=== PATIENT | male | born 1970 | race Hispanic/Latino ===

== ENCOUNTER 2019-05-22 08:00 | Outpatient (CLI) | payer BC ==
--- NOTE | 2019-05-22 10:31 | MRI ---
MRI LEFT KNEE WITHOUT CONTRAST: HISTORY: Left knee pain. FINDINGS: The anterior as well as posterior cruciate ligaments are intact. The lateral meniscus has a normal shape and appearance. There is a posterior horn medial meniscus tear which appears to have more of a radial orientation. Th ere are also some mild edema changes along the meniscocapsular junction of the posterior horn. There are edema changes superficial to the MCL, which is intact. The meniscofemoral and meniscotibial ligaments are intact. The lateral collateral ligament is intact. The patellar articular cartilage shows some grade 4 chondromalacia change near the apex of the patell a. Medial and lateral patellar retinaculum and quadriceps and patellar tendons are normal. There are some articular bodies noted within the posterior joint space. These are directly posterior to the amada t of the posterior horn of the medial meniscus. IMPRESSION: 1. Radially oriented tear involving the posterior horn of the medial meniscus. There are also some mo derate chondromalacia changes of the posterior articular surface of the medial femoral condyle. 2. Edema changes which are superficial to the medial collateral ligament. This could indicate some el ement of medial collateral ligament strain. There is some soft tissue edema change seen also posterio r to the medial collateral ligament. 3. 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 POS: [facility]PC
== END 2019-05-22 08:01 | disposition home or self-care (01) ==
LOC: SCSMRI 08:00
PROVIDERS: ATTEND Family Medicine
DX: M23.92 Unspecified internal derangement of left knee (principal); S83.242A Other tear of medial meniscus, current injury, left knee, initial encounter; M17.12 Unilateral primary osteoarthritis, left knee

== ENCOUNTER 2019-07-08 08:28 | Outpatient (CLI) | payer BC ==
[2019-07-08 11:37] LABS: #Basophils 0.1 thou/uL (0.0-0.2); #Eosinphils 0.3 thou/uL (0.0-0.7); #Lymphocytes 1.4 thou/uL (1.20-3.40); #Monocytes 0.7 thou/uL (0.11-0.59); #Neutrophils 4.6 thou/uL (1.40-6.50); %Basophils 0.9 % (0.0-1.0); %Eosinophils 4.6 % (0.0-10.0); %Monocytes 9.9 % (0.0-10.0); %Neutrophils 64.6 % (42.0-75.0); Hemoglobin 15.1 g/dL (14.0-18.0); Mean Corpuscular HGB CONC 32.7 g/dL (32.0-36.0); Mean Corpuscular Hemoglobin 30.3 pg (27.0-31.0); Mean Corpuscular Volume 92.7 fL (78.0-98.0); Mean Platelet Volume 10.8 fL (7.4-10.4); Platelet Count 193 thou/uL (130-400); RBC Distribution Width 12.4 % (11.5-14.5); White Blood Cell (WBC) Count 7.2 thou/uL (4.8-10.8)
[2019-07-08 11:57] LABS: Anion Gap 14 mmol/L (10-20); BUN (Urea Nitrogen) 15 mg/dL (8.9-20.6); Calc. Creatinine Clearance 0 mL/min (70-130); Calcium 9.3 mg/dL (7.8-10.44); Carbon Dioxide 24 mmol/L (22-29); Chloride 106 mmol/L (98-107); Estimated GFR-MDRD 83; Glucose 90 mg/dL (70-105); Potassium 3.7 mmol/L (3.5-5.1); Sodium 140 mmol/L (136-145)
== END 2019-07-08 08:29 | disposition home or self-care (01) ==
LOC: LABBT 08:28
PROVIDERS: ATTEND Orthopaedic Surgery
DX: Z01.818 Encounter for other preprocedural examination (principal); S83.207A Unspecified tear of unspecified meniscus, current injury, left knee, initial encounter
CPT/HCPCS: 80048; 85025; 93005; 93010

== ENCOUNTER 2019-07-10 05:59 | Day surgery (SDC) | payer BC ==
[2019-07-08 08:51] VITALS: BMI 27.6
[2019-07-10] MEDS ORDERED: Clindamycin/D5W 600 mg/50 ml Premix Bag ONE (06:06)
[2019-07-10] MEDS ORDERED: PROPOFOL 20 ML ONE (06:56)
[2019-07-10] MEDS ORDERED: Midazolam HCl 2 mg/2 ml Vial ONE (07:19)
[2019-07-10] MEDS ORDERED: Fentanyl 100 MCG/2 ML VIAL ONE (07:20)
--- NOTE | 2019-07-10 10:39 | OP ---
DATE OF PROCEDURE: 07/10/2019 PREOPERATIVE DIAGNOSES: 1. Right knee pain. 2. Left knee medial meniscus tear. POSTOPERATIVE DIAGNOSES: 1. Right knee pain. 2. Left knee unstable chondral flaps over a grade 4 lesion on the medial femoral condyle, which was nearly 3 cm from anterior to posterior and at its widest was 8 mm mediolateral. 3. Grade 4 lesion of the patella with loose unstable chondral flaps. PROCEDURES PERFORMED: 1. Left knee chondroplasty of the medial femoral condyle and patella. 2. Right knee corticosteroid injection. 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 ESTIMATED BLOOD LOSS: Minimal. COMPLICATIONS: None. ANESTHESIA: The patient had a general anesthetic as well as a local knee block. DISPOSITION: He went to recovery room in stable condition. INDICATIONS: This is an active 49-year-old male, who comes in complaining of pain, catching, and swelling of the knee and had an MRI, which showed a large meniscal tear. DESCRIPTION OF PROCEDURE: After all appropriate consent forms were explained and signed, he was taken back to the operative room and at this time was given general anesthetic. Once the level of anesthesia was appropriate, 80 mg of Depo-Medrol with plain lidocaine was injected into the right knee without complication. A Band-Aid was applied. At this time, a tourniquet was placed on the left thigh and leg was then placed in arthroscopic leg daugherty. The limb was then prepped and draped in standard surgical fashion. The limb was then exsanguinated and tourniquet was taken up to 300 mmHg. Inferolateral portal was established. Scope was placed into the knee joint. A needle localization technique was then used to make a medial working portal. Diagnostic arthroscopy commenced in the notch. The ACL and PCL were probed, found to be intact, with small osteophyte in the notch itself. There were no loose bodies noted in the notch. Upon visualization of the medial femoral condyle, it was apparent that there was an area of grade 4 that had already grown little bit of fiber cartilage over top of it. There was some significant unstable chondral flaps, which were able to be pulled in and out with a probe. These were taken down to a stable wall with shaver and biter. Once this was done, this defect was measured at its widest point, it was 8 mm with the majority of it was around 5 mm and it was nearly 3 cm from ADP. At this time, we then turned our attention to the remaining portion of the medial compartment. The medial tibial plateau did have some grade 2 areas, but there was no visible bone. The meniscus was probed on the superior and inferior surface and found to be completely intact. I did go behind the medial femoral condyle, looking for any loose pieces or any evidence of meniscal capsular separation and there was none. At this time, we turned our attention to the lateral compartment. The lateral compartment was completely intact. I went to the posterolateral compartment looking for loose bodies and did not see any. At this time, the gutters were swept through. They were clean. The patellofemoral joint was then evaluated. The trochlea was in good condition. The patella, however, had some significant unstable chondral flaps with areas of grade 3 and 4 chondromalacia. Once these were taken down to a stable base, we went through the knee, making sure there were no more floating loose bodies. There were none. We removed the scope, drained the knee and closed these portal with a simple nylon stitch. A bulky sterile dressing was then applied. Tourniquet was let down. Toes pinked up nicely. The patient was then awakened and he was taken to the recovery room in stable condition. All counts were correct at the end of the case and he did receive preoperative IV antibiotics. Job ID: [id number]
[2019-07-10] MEDS ORDERED: Lidocaine 2% w/Epinephrine 1:200K 20 ML VIAL ONE (10:41)
[2019-07-10] MEDS ORDERED: Bupivacaine HCl 0.5%/Epinephrine 1:200,000/PF 30 ml Vial ONE (10:41)
[2019-07-10] MEDS ORDERED: Ondansetron PF 4 MG/2 ML Vial ONE (10:41)
[2019-07-10] MEDS ORDERED: PROPOFOL 200 MG/20 ML VIAL ONE (10:41)
== END 2019-07-10 10:34 | disposition home or self-care (01) ==
LOC: SDC 05:59
PROVIDERS: ATTEND Orthopaedic Surgery
PROC: 3E0U33Z Introduction of Anti-inflammatory into Joints, Percutaneous Approach (ICD-10-PCS; principal; 2019-07-10)
PROC: 0SBD4ZZ Excision of Left Knee Joint, Percutaneous Endoscopic Approach (ICD-10-PCS; principal; 2019-07-10)
DX: M94.8X8 Other specified disorders of cartilage, other site (principal); M25.561 Pain in right knee; E78.00 Pure hypercholesterolemia, unspecified; E78.5 Hyperlipidemia, unspecified; J45.909 Unspecified asthma, uncomplicated; Z79.899 Other long term (current) drug therapy; Z88.0 Allergy status to penicillin; Z88.1 Allergy status to other antibiotic agents; Z91.013 Allergy to seafood
CPT/HCPCS: J0670; J2250; J2405; J2704; J3010; J3490

== ENCOUNTER 2020-08-28 10:12 | Outpatient (CLI) | payer BC ==
[2020-08-28 11:54] LABS: #Basophils 0.1 10x3/uL (0.0-0.2); #Eosinphils 0.4 10x3/uL (0.0-0.5); #Monocytes 0.7 10x3/uL (0.0-1.1); #Neutrophils 4.9 10x3/uL (1.5-8.4); %Basophils 1.1 % (0.0-2.0); %Eosinophils 5.7 % (0.0-6.0); %Lymphocytes 15.8 % (18.0-47.0); %Monocytes 9.7 % (0.0-10.0); %Neutrophils 67.3 % (40.0-75.0); Hemoglobin 15.6 g/dL (13.5-17.5); Mean Corpuscular Hemoglobin 29.1 pg (27.0-33.0); Mean Corpuscular Volume 90.7 fl (81.2-95.1); Mean Platelet Volume 12.4 fl (7.4-10.4); Platelet Count 249 10x3/uL (150-450); RBC Distribution Width 13.1 % (11.5-14.5); Red Blood Cell (RBC) Count 5.37 10x6/uL (4.32-5.72); White Blood Cell (WBC) Count 7.3 10x3/uL (3.5-10.5)
[2020-08-28 12:10] LABS: Anion Gap 11 mmol/L (10-20); BUN (Urea Nitrogen) 18 mg/dL (8.9-20.6); Calc. Creatinine Clearance 0 mL/min (70-130); Calcium 9.4 mg/dL (7.8-10.44); Carbon Dioxide 28 mmol/L (22-29); Chloride 104 mmol/L (98-107); Glucose 108 mg/dL (70-105); Sodium 138 mmol/L (136-145)
[2020-08-28 18:34] LABS: SARS-CoV-2 PCR by NAA Not Detected (NotDetected)
== END 2020-08-28 10:13 | disposition home or self-care (01) ==
LOC: LABBT 10:12
PROVIDERS: ATTEND Orthopaedic Surgery
DX: Z01.812 Encounter for preprocedural laboratory examination (principal); M23.41 Loose body in knee, right knee; Z20.822 Contact with and (suspected) exposure to COVID-19
CPT/HCPCS: 80048; 85025; 87635; 93005; 93010; U0003; U0005

== ENCOUNTER 2020-09-02 05:41 | Day surgery (SDC) | payer BC ==
[2020-09-01 11:37] VITALS: BMI 27.4
[2020-09-02] MEDS ORDERED: Clindamycin/D5W 600 mg/50 ml Premix Bag ONE (06:11)
[2020-09-02] MEDS ORDERED: PROPOFOL 20 ML ONE (06:47)
[2020-09-02] MEDS ORDERED: Ondansetron PF 4 MG/2 ML Vial ONE (07:49)
[2020-09-02] MEDS ORDERED: Bupivacaine HCl 0.5%/Epinephrine 1:200,000/PF 30 ml Vial ONE (07:49)
[2020-09-02] MEDS ORDERED: Lidocaine 1% PF 5 ML VIAL ONE (07:49)
[2020-09-02] MEDS ORDERED: Ketorolac Tromethamine 30 MG/ML VIAL ONE (07:49)
[2020-09-02] MEDS ORDERED: Lidocaine 2% w/Epinephrine 1:200K 20 ML VIAL ONE (07:49)
[2020-09-02] MEDS ORDERED: PROPOFOL 200 MG/20 ML VIAL ONE (07:49)
[2020-09-02] MEDS ORDERED: Meperidine HCl/PF 25 MG/ML VIAL ONE (09:07)
== END 2020-09-02 10:50 | disposition home or self-care (01) ==
LOC: SDC 05:41
PROVIDERS: ATTEND Orthopaedic Surgery
PROC: 0SCC4ZZ Extirpation of Matter from Right Knee Joint, Percutaneous Endoscopic Approach (ICD-10-PCS; principal; 2020-09-02)
PROC: 0SBC4ZZ Excision of Right Knee Joint, Percutaneous Endoscopic Approach (ICD-10-PCS; principal; 2020-09-02)
DX: M22.41 Chondromalacia patellae, right knee (principal); M23.8X1 Other internal derangements of right knee; M23.41 Loose body in knee, right knee; M23.322 Other meniscus derangements, posterior horn of medial meniscus, left knee; E78.5 Hyperlipidemia, unspecified; J45.909 Unspecified asthma, uncomplicated; Z88.0 Allergy status to penicillin; Z88.1 Allergy status to other antibiotic agents; Z91.013 Allergy to seafood
CPT/HCPCS: J1885; J2175; J2405; J2704; J3490

== ENCOUNTER 2022-01-17 14:43 | Outpatient (CLI) | payer BC | END 2022-01-17 14:44 | disposition home or self-care (01) | LOC: SCSRAD 14:43 | PROVIDERS: ATTEND Internal Medicine Rheumatology | DX: R06.02 Shortness of breath (principal); J98.4 Other disorders of lung | CPT/HCPCS: 71046 ==

== ENCOUNTER 2023-11-01 14:21 | Outpatient (CLI) | payer BC | END 2023-11-01 14:22 | disposition home or self-care (01) | LOC: SCSRAD 14:21 | PROVIDERS: ATTEND Internal Medicine Rheumatology | DX: S99.921A Unspecified injury of right foot, initial encounter (principal); S92.411A Displaced fracture of proximal phalanx of right great toe, initial encounter for closed fracture ==